=== PATIENT | female | born 1940 | race Caucasian/White ===

== ENCOUNTER 2020-12-18 10:12 | Outpatient (CLI) | payer MEDICARE | END 2020-12-18 23:59 | disposition home or self-care (01) | LOC: RAD 10:12 | PROVIDERS: ATTEND Physician Assistant Surgical | DX: S32.591A Other specified fracture of right pubis, initial encounter for closed fracture (principal); M94.251 Chondromalacia, right hip; N81.89 Other female genital prolapse; X58.XXXA Exposure to other specified factors, initial encounter; Y93.89 Activity, other specified; Y92.89 Other specified places as the place of occurrence of the external cause; Y99.8 Other external cause status ==